=== PATIENT | male | born 1960 | race Caucasian/White ===

== ENCOUNTER 2016-03-24 22:03 | Emergency (ER) | payer OTHER ==
[~2016-03-24] VITALS: Ht 182.9 cm; Wt 87.5 kg
[~2016-03-24 22:03] MED LIST: CLON-379 PO; FENT-23 TD; FOLI-49 PO; GABA100C14 PO; INSU100C5 SQ; LEVE100018 PO; METO50TA16 PO; PANT40TA3 PO; PHE30 PO; THIA100T10 PO
[2016-03-24 22:07] VITALS: Ht 182.9 cm; Wt 87.5 kg
[2016-03-24] MEDS ORDERED: SOD CHLORIDE 0.9% 1,000 ML IV STA (23:51)
[2016-03-24] MEDS ORDERED: LEVETIRACETAM IV 1,000 MG in SOD CHLORIDE 0.9% 100 ML IVPB STA (23:51)
[2016-03-25] MEDS ORDERED: HYDR-906 PO (02:27)
[2016-03-25] MEDS ORDERED: LEVE500S9 PO (02:27)
[2016-03-25] MEDS ORDERED: ALPRAZOLAM 0.25 MG TAB PO ONE (02:30)
[2016-03-25] MEDS ORDERED: HYDROCODONE/APAP (5/325) TAB PO ONE (02:30)
[2016-03-25 03:17] VITALS: BP 141/79; PULSE 94; RESP 18; TEMP 99.1
[2016-03-25] MEDS ORDERED: ONDANSETRON (ODT) 4 MG TAB ODT ONE (03:23)
--- NOTE | 2016-03-25 03:24 | ERD ---
ER Documentation Chief Complaint Date/Time DATE: 03/25/16 TIME: 03:18 Chief Complaint "i had seizure" 1 hr ago run out of seizures meds,"i am confused" HPI 56-year-old male with a history of known seizure disorder previously on Keppra presented emergency room saying he had a seizure about an hour ago that somebody told him lasted couple of minutes involve whole body shaking. States that he normally takes Keppra 1 g twice daily but has not had it for the last few days because he let his prescription ran out and did not get a refill. Also states that he thinks he is having narcotic withdrawals because he let his fentanyl patches run out as well. States that he has chronic back pain. He denies any focal neurological deficits and currently has no headache, fevers, chills, chest pain. ROS All systems reviewed and are negative except as per history of present illness. Medications Home Meds Active Scripts Hydrocodone/Acetaminophen ([place] 5-325 Tablet) 1 Each Tablet, 1 EACH PO Q6, #10 TAB Prov:MANISHA KAUR DO 03/25/16 Levetiracetam* (Keppra*) 500 Mg/5 Ml Solution, 1000 MG PO BID, #30 BOTTLE Prov:MANISHA KAUR DO 03/25/16 Pantoprazole* (Protonix*) 40 Mg Tablet.dr, 40 MG PO DAILY, #30 TAB 1 Refill Prov:MYRA ARREOLA MD 11/04/14 Reported Medications Fentanyl Patch* (Fentanyl Patch*) 75 Mcg/Hr Transdermal Patch, 1 PATCH TD Q72H, PATCH 10/29/14 Metoprolol Succinate* (Toprol XL*) 50 Mg Tab.er.24h, 50 MG PO DAILY, TAB 08/03/13 Thiamine* (Thiamine*) 100 Mg Tablet, 100 MG PO DAILY 02/27/13 Phenobarbital* (Phenobarbital*) 32.4 Mg Tab, 15 MG PO BID 02/27/13 Levetiracetam* (Keppra*) 1,000 Mg Tablet, 1500 MG PO Q12 02/27/13 Insulin Glargine,Hum.rec.anlog (Lantus) 100 U/Ml Cartridge, 15 UNIT SQ DAILY 02/27/13 Gabapentin* (Gabapentin*) 100 Mg Capsule, 100 MG PO BID 02/27/13 Folic Acid* (Folic Acid*) 1 Mg Tablet, 1 MG PO DAILY 02/27/13 Pantoprazole* (Protonix*) 40 Mg Tablet.dr, 40 MG PO 02/09/13 Clonidine Hcl* (Clonidine Hcl*) 0.1 Mg Tab, 0.1 MG PO DAILY Y for ELEVATED BLOOD PRESSURE 07/08/12 Allergies Allergies: Coded Allergies: Diphenoxylate HCl (Verified Allergy, Mild, RASH, 01/26/14) atropine sulfate (Verified Allergy, Mild, RASH, 01/26/14) PMhx/Soc History of Surgery: Yes (BILATERAL HIP REPLACEMENT) Anesthesia Reaction: No Hx Neurological Disorder: No Hx Respiratory Disorders: Yes Hx Cardiac Disorders: Yes (TACHYCARDIA,ARRYTHMIA) Hx Psychiatric Problems: Yes (DEPRESSION,ANXIETY) Hx Miscellaneous Medical Probl: Yes Hx Alcohol Use: Yes Hx Substance Use: Yes Hx Tobacco Use: Yes Smoking Status: Current every day smoker Physical Exam Vitals Vital Signs Date Time Temp Pulse Resp B/P Pulse Ox O2 Delivery O2 Flow Rate FiO2 03/25/16 03:00 107 24 142/80 97 Room Air 03/24/16 22:07 97.8 103 20 162/89 98 Physical Exam Const: [] No acute distress Head: Atraumatic Eyes: Normal Conjunctiva, EOMI, PERRLA ENT: Normal External Ears, Nose and Mouth. Neck: Full range of motion..~ No meningismus. Resp: Clear to auscultation bilaterally Cardio: Regular rate and rhythm, no murmurs Abd: Soft, non tender, non distended. Normal bowel sounds Skin: No petechiae or rashes Back: No midline or flank tenderness Ext: No cyanosis, or edema Neur: Awake and alert and oriented 3, cranial nerves II through XII intact, no cerebellar deficits, normal gait Psych: Normal Mood and Affect Results 24 hrs Current Medications Medications (Trade) Dose Ordered Sig/Vivek Route PRN Reason Start Time Stop Time Status Last Admin Dose Admin Sodium Chloride 1,000 ml @ 1,000 mls/hr Q1H STAT IV 03/24/16 23:51 03/25/16 00:50 DC 03/25/16 01:29 Levetiracetam/ Sodium Chloride (Keppra Iv/NS) 110 ml @ 400 mls/hr ONCE STAT IVPB 03/24/16 23:51 03/25/16 00:07 DC 03/25/16 01:28 Fentanyl (Duragesic 25 Mcg/Hr Patch) 1 patch NOW ONCE TRANSDERM 03/25/16 02:00 03/25/16 02:01 DC Acetaminophen/ Hydrocodone Bitart ([place] (5/325)) 1 tab ONCE ONCE PO 03/25/16 02:30 03/25/16 02:31 DC 03/25/16 02:39 Alprazolam (Xanax) 0.5 mg ONCE ONCE PO 03/25/16 02:30 03/25/16 02:31 DC 03/25/16 02:40 Procedures/MDM Seizure disorder and patient noncompliant on medications. Patient has primary care but failed to see his doctor on time to get a refill for his medications. Patient requested benzodiazepines and narcotics in the emergency room. Nurses were unable to draw blood from the patient and laboratory failed. The patient said he no longer wanted to be poked for labs if they were completely necessary. He was given a liter of normal saline and loaded with a gram of Keppra. Patient also would intermittently shake his arms and claim he is having a seizure however he remained verbal during this time and actually had motor control and was able to extricate purposeful movements during these episodes. Was given a [place] tablet as well as p.o. Xanax. I am discharging him with his previous dose of Keppra as well as a few [place] tabs. He agrees to call his primary care doctor tomorrow for an appointment this week. Departure Diagnosis: Primary Impression: Seizure disorder Condition: Stable Patient Instructions: Seizure, Recurrent [Adult] Additional Instructions: Call your primary care doctor TOMORROW for an appointment during the next 1-2 days.See the doctor sooner or return here if your condition worsens before your appointment time. MANISHA KAUR DO Mar 25, 2016 03:24
== END 2016-03-25 03:18 | disposition home or self-care (01) ==
LOC: E/R 22:03
DX: G40.909 Epilepsy, unspecified, not intractable, without status epilepticus (principal); F17.210 Nicotine dependence, cigarettes, uncomplicated; R40.2142 Coma scale, eyes open, spontaneous, at arrival to emergency department; R40.2252 Coma scale, best verbal response, oriented, at arrival to emergency department; R40.2362 Coma scale, best motor response, obeys commands, at arrival to emergency department; Z96.643 Presence of artificial hip joint, bilateral
CPT/HCPCS: 96374; 99284; J1953; J7030